=== PATIENT | female | born 1980 | race Two or more races ===

== ENCOUNTER → 2024-09-23 | Outpatient (CLI) | payer MEDICAID, SELFPAY ==
--- NOTE | 2024-09-23 13:00 | XR_ITS ---
Examination: Screening digital mammography, bilateral Computer aided detection 3-D breast Tomosynthesis, bilateral Date and time of exam: September 23, 2024 1249 hours Compared to mammograms dating to February 17, 2023 Indication: Screening Technique: Nonmagnified MLO, CC views of the breasts to been obtained, reconstructed from 3-D Tomosynthesis images. R2 computer aided detection program utilized for evaluation of suspicious masses and/or abnormal calcifications. 3-D Tomosynthesis images obtained. Findings: The breasts are heterogeneously dense, which may obscure small masses Benign calcifications No interval suspicious masses Impression: BI-RADS Category 0: Incomplete: Need additional imaging evaluation Recommend follow-up bilateral breast sonography to assess 3:00 nodule 14 x 5 x 13 mm described on left breast sonogram February 29, 2024
== END | disposition home or self-care (01) ==
PROVIDERS: PCP Specialist; Referring Provider Specialist; Visit Provider Specialist
DX: Z12.31 Encounter for screening mammogram for malignant neoplasm of breast (principal); R92.8 Other abnormal and inconclusive findings on diagnostic imaging of breast; N63.25 Unspecified lump in the left breast, overlapping quadrants
CPT/HCPCS: 77063; 77067

== ENCOUNTER → 2024-12-21 | Outpatient (CLI) | payer MEDICAID, SELFPAY ==
--- NOTE | 2024-12-21 11:30 | XR_ITS ---
Examination: Breast ultrasound complete, bilateral Date and time of exam: December 21, 2024 1154 hours INDICATIONS: December 21, 2024 1154 hours INDICATIONS: Breast sonography February 29, 2024 3:00 nodule left breast 14 x 5 x 13 mm Technique: Real-time grayscale ultrasonographic imaging bilateral breasts, including all 4 quadrants as well as nipple retroareolar and axillary regions. Findings: Sonographic images right breast 3:00 cyst 4 x 3 mm 11:00 nodule circumscribed hyperechoic 6 x 4 mm Sonographic images left breast No cystic or solid mass IMPRESSION: BI-RADS Category 3: Probably benign findings Recommend 1 additional 6 month right breast sonography follow-up to document stability of 11:00 nodule described above
== END | disposition home or self-care (01) ==
LOC: CDIM 11:11
PROVIDERS: PCP Specialist; Referring Provider Specialist; Visit Provider Specialist
DX: R92.333 Mammographic heterogeneous density, bilateral breasts (principal); N63.11 Unspecified lump in the right breast, upper outer quadrant
CPT/HCPCS: 76641